=== PATIENT | female | born 1975 | race Two or more races ===

== ENCOUNTER 2021-10-06 20:14 | Emergency (ER) | payer OTHER ==
[~2021-10-06] VITALS: Ht 172.7 cm; Wt 81.6 kg
[~2021-10-06 20:14] MED LIST: IBUP-974 PO
[2021-10-06 20:26] VITALS: BP 122/76
--- NOTE | 2021-10-06 20:32 | NUR ---
PATIENT TO [facility] AMBULATORY
--- NOTE | 2021-10-06 22:03 | NUR ---
Dr. Jorgensen examining patient.
--- NOTE | 2021-10-06 22:43 | NUR ---
PATIENT AMBULATORY TO BED 6
[2021-10-06] MEDS ORDERED: KETOROLAC 60 MG/2 ML VIAL IM ONE (22:50)
[2021-10-06] MEDS ORDERED: IBUP-2218 PO (22:52)
== END 2021-10-07 00:06 | disposition home or self-care (01) ==
LOC: MED 20:14
DX: S59.911A Unspecified injury of right forearm, initial encounter (principal); Z79.899 Other long term (current) drug therapy; W20.8XXA Other cause of strike by thrown, projected or falling object, initial encounter; Y93.89 Activity, other specified; Y92.89 Other specified places as the place of occurrence of the external cause; Y99.8 Other external cause status
CPT/HCPCS: 73090; 96372; 99283; J1885

== ENCOUNTER 2022-04-23 18:48 | Emergency (ER) | payer OTHER ==
[~2022-04-23] VITALS: Ht 172.7 cm; Wt 80.3 kg
[~2022-04-23 18:48] MED LIST changes: +IBUP-2218 PO
[2022-04-23 19:02] VITALS: BP 140/90
--- NOTE | 2022-04-23 19:20 | NUR ---
RECEIVED IN BED 1 WITH C/O "I FEEL BAD, MY FACE HAS NUMBNESS, MY EYEBROWS ARE NUMB. IT WAS WORSE EARLIER. I TRAVELED FROM [place] YESTERDAY AFTER BEING THERE FOR A WEEK. I HAD A LOT OF TEQUILA SHOTS" PT DENIES N,V,D. PT DENIES TRAUMA. PT DENIES FEVER OR CHILLS. PT DENIES CHEST PAIN, SOB. PMH: DENIES MEDS: DENIES NKA Addendum: 04/23/22 at 1940 by NERY NO FACIAL DROOP NOTED, HAS EQUAL SMILE. 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
[2022-04-23] MEDS ORDERED: hydrOXYzine PAMOATE 25 MG CAP PO STA (19:35)
[2022-04-23 20:06] LABS: BASOPHILS % (AUTO) 0.6 % (0.0-2.0); EOSINOPHILS # (AUTO) 0.3 K/uL (0-0.4); EOSINOPHILS % (AUTO) 3.4 % (0.0-4.0); HEMATOCRIT 38.3 % (36-48); HEMOGLOBIN 12.2 g/dL (12.0-16.0); LYMPHOCYTES # (AUTO) 1.8 K/uL (2.5-16.5); LYMPHOCYTES % (AUTO) 22.9 % (20.5-51.1); MEAN CORPUSCULAR HEMOGLOBIN 25 pg (27-31); MEAN CORPUSCULAR HGB CONC 32 g/dL (33-37); MEAN CORPUSCULAR VOLUME 78.3 fL (80-94); MONOCYTES # (AUTO) 0.6 K/uL (0.8-1.0); MONOCYTES % (AUTO) 7.9 % (1.7-9.3); NEUTROPHILS # (AUTO) 5.2 K/uL (1.8-7.7); NEUTROPHILS % (AUTO) 65.2 % (42.2-75.2); PLATELET COUNT (AUTO) 311 K/uL (140-450); RED BLOOD CELL COUNT(AUTO) 4.89 MIL/uL (4.20-5.40); RED CELL DISTRIBUTION WIDTH 26.9 % (11.6-13.7); WHITE BLOOD COUNT (AUTO) 7.9 K/uL (4.8-10.8)
[2022-04-23 21:08] LABS: ALBUMIN 3.2 g/dL (3.4-5.0); ANION GAP 14.4 (8-16); CARBON DIOXIDE 22.3 mmol/L (21-32); MAGNESIUM 1.8 mg/dL (1.8-2.4); POTASSIUM 3.7 mmol/L (3.5-5.1); THYROID STIMULATING HORMONE 4.27 uIU/mL (0.34-3.74); TOTAL BILIRUBIN 0.1 mg/dL (0.0-1.0)
== END 2022-04-23 21:45 | disposition home or self-care (01) ==
LOC: MED 18:48
DX: R20.2 Paresthesia of skin (principal); Z79.1 Long term (current) use of non-steroidal anti-inflammatories (NSAID)
CPT/HCPCS: 36415; 80053; 83735; 84443; 85025; 99283; Q0177

== ENCOUNTER 2023-01-22 06:48 | Emergency (ER) | payer OTHER ==
[~2023-01-22] VITALS: Ht 167.6 cm; Wt 81.6 kg
[2023-01-22 07:00] VITALS: BP 117/78
--- NOTE | 2023-01-22 07:10 | NUR ---
PT TAKEN TO BED 5
--- NOTE | 2023-01-22 07:11 | NUR ---
Dr. Morris examining patient.
[2023-01-22] MEDS ORDERED: LOPERAMIDE 2 MG CAP PO ONE (07:20)
[2023-01-22] MEDS ORDERED: DICYCLOMINE HCL LIQUID 20 MG, ALUMINUM HYD/MAG/SIMETHICONE 30 ML, LIDOCAINE VISCOUS 2% ... PO ONE ×3 (07:20)
[2023-01-22] MEDS ORDERED: ALUMINUM HYD/MAG/SIMETHICONE 30 ML UDC ONE (07:24)
[2023-01-22] MEDS ORDERED: DICYCLOMINE HCL LIQUID 10 MG/5 ML UDC ONE (07:24)
[2023-01-22] MEDS ORDERED: BEN10 PO (07:36)
[2023-01-22] MEDS ORDERED: [UNRECOGNIZED DRUG - CODE] PO (07:36)
[2023-01-22] MEDS ORDERED: LOPE1TAB14 PO (07:36)
[2023-01-22 08:16] VITALS: BP 117/78
[2023-01-22 09:39] LABS: APPEARANCE,URINE CLEAR (CLEAR); BILIRUBIN,URINE 1+ (NEGATIVE); BLOOD, URINE 2+ (NEGATIVE); COLOR,URINE YELLOW (YELLOW); LEUKOCYTE ESTERASE ,URINE TRACE (NEGATIVE); NITRITE, URINE NEGATIVE (NEGATIVE); UGLUCOSE NEGATIVE (NEGATIVE)
[2023-01-22 10:04] LABS: RBC,URINE NONE SEEN /HPF (0-5); WBC,URINE 0-5 /HPF (0-5)
== END 2023-01-22 08:16 | disposition home or self-care (01) ==
LOC: MED 06:48
DX: A08.4 Viral intestinal infection, unspecified (principal); Z79.899 Other long term (current) drug therapy; Z79.1 Long term (current) use of non-steroidal anti-inflammatories (NSAID)
CPT/HCPCS: 81001; 81025; 99283

== ENCOUNTER 2024-01-21 23:28 | Emergency (ER) | payer OTHER ==
[~2024-01-21] VITALS: Ht 167.6 cm; Wt 78.0 kg
[~2024-01-21 23:28] MED LIST changes: +BEN10 PO; +LOPE1TAB14 PO; +[UNRECOGNIZED DRUG - CODE] PO
[2024-01-21 23:43] VITALS: BP 133/82; PULSE 89; RESP 17; TEMP 98.1; O2SAT 100
[2024-01-22] MEDS ORDERED: BENZ200C4 PO (03:47)
[2024-01-22] MEDS ORDERED: AZIT250T4 PO (03:47)
[2024-01-22] MEDS ORDERED: PROM118S5 PO (03:47)
[2024-01-22 03:52] VITALS: BP 128/80; PULSE 82; RESP 16; TEMP 98.1; O2SAT 100
== END 2024-01-22 03:52 | disposition home or self-care (01) ==
LOC: MED 23:28
DX: J06.9 Acute upper respiratory infection, unspecified (principal); J04.0 Acute laryngitis; Z79.899 Other long term (current) drug therapy
CPT/HCPCS: 71045; 99283